=== PATIENT | female | born 1975 | race Two or more races ===

== ENCOUNTER 2021-03-24 19:51 | Emergency (ER) | payer MEDICARE ==
[~2021-03-24] VITALS: Ht 160 cm; Wt 101.9 kg
[2021-03-24 19:56] VITALS: BP 175/99
== END 2021-03-24 20:16 | disposition home or self-care (01) ==
LOC: ED 20:10
DX: B02.9 Zoster without complications (principal); E11.9 Type 2 diabetes mellitus without complications
CPT/HCPCS: 99283